=== PATIENT | female | born 1965 | race Caucasian/White ===

== ENCOUNTER → 2017-05-03 | Outpatient (CLI) | payer OTHER | LOC: FIMAGING 13:59 | PROVIDERS: ATTEND Nurse Practitioner | DX: I82.A11 Acute embolism and thrombosis of right axillary vein (principal); R07.9 Chest pain, unspecified ==

== ENCOUNTER → 2017-05-11 | Outpatient (CLI) | payer OTHER | LOC: FIMAGING 12:51 | PROVIDERS: ATTEND Physician Assistant | DX: Z71.9 Counseling, unspecified (principal) ==

== ENCOUNTER → 2017-05-18 | Day surgery (SDC) | payer OTHER ==
[~2017-05-18] MED LIST: IOPAMIDOL (ISOVUE-300) 100 ML BTL ONE
--- NOTE | 2017-05-18 15:26 | PDRADPN ---
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 Inf/Abcess present in the surg proc area at time of surgery?: No EBL: Minimal Complications: No immediate.
== END | disposition home or self-care (01) ==
LOC: FIMAGING 13:12
PROVIDERS: ATTEND Radiology Diagnostic Radiology
PROC: B51M1ZZ Fluoroscopy of Right Upper Extremity Veins using Low Osmolar Contrast (ICD-10-PCS; principal; 2017-05-18)
PROC: 05773ZZ Dilation of Right Axillary Vein, Percutaneous Approach (ICD-10-PCS; principal; 2017-05-18)
DX: I87.1 Compression of vein (principal); Z86.718 Personal history of other venous thrombosis and embolism
CPT/HCPCS: 36005; 37248; 75820; C1769; C1894; C1725; J1644; Q9967